=== PATIENT | male | born 1990 | race Asian ===

== ENCOUNTER 2021-03-16 09:24 | Emergency (ER) | payer MEDICAID ==
[~2021-03-16] VITALS: Ht 165.1 cm; Wt 68.2 kg
[2021-03-16 09:26] VITALS: BP 145/86
== END 2021-03-16 11:23 | disposition home or self-care (01) ==
LOC: EMS 09:26
DX: S96.901A Unspecified injury of unspecified muscle and tendon at ankle and foot level, right foot, initial encounter (principal); X58.XXXA Exposure to other specified factors, initial encounter; Y93.89 Activity, other specified; Y92.89 Other specified places as the place of occurrence of the external cause; Y99.8 Other external cause status
CPT/HCPCS: 29515; 99284; 73610-TC; 73630-TC; Z7502